=== PATIENT | female | born 1970 | race African-American/Black ===

== ENCOUNTER 2024-02-14 12:57 | Day surgery (SDC) | payer BC ==
[2024-02-14] MEDS ORDERED: Lidocaine 1% PF 5 ML VIAL ONE (13:12)
[2024-02-14] MEDS ORDERED: Sodium Bicarbonate 2.5 MEQ/5 ML SDV ONE (13:12)
== END 2024-02-14 15:00 | disposition home or self-care (01) ==
LOC: ULT 12:57
PROVIDERS: ATTEND Otolaryngology Plastic Surgery within the Head & Neck
PROC: 0G9 Endocrine System, Drainage (ICD-10-PCS; principal; 2024-02-14)
DX: E04.1 Nontoxic single thyroid nodule (principal)
CPT/HCPCS: 10005; 88173; 88305